=== PATIENT | female | born 1985 | race Caucasian/White ===

== ENCOUNTER 2018-08-18 20:48 | Inpatient (IN) ==
[2018-08-18] MEDS ORDERED: SODIUM CHLORIDE 0.9% 1,000 ML IV STA (21:33)
[2018-08-18] MEDS ORDERED: MORPHINE 4 MG/1 ML VIAL IV STA (21:33)
[2018-08-18] MEDS ORDERED: ONDANSETRON 4 MG/2 ML VIAL IV STA (21:33)
[2018-08-18 21:46] LABS: Basophils % 0.2 % (0.0-0.8); Eosinophils # 0.1 10*3/uL (0.0-0.87); Hematocrit 36.7 VOL% (35.7-47.0); Hemoglobin 11.3 GM/DL (12.0-16.0); Immature Granulocytes % 0.3 %; Immature Granulocytes Absolute 0.04 #; Lymphocytes # 2.3 10*3/uL (1.4-4.0); Lymphocytes % 18.6 % (21.3-54.2); Mean Corpuscular HGB Conc 30.8 GM/DL (32-36); Mean Corpuscular Hemoglobin 24 PG (27-34); Mean Corpuscular Volume 78.8 FL (87-102); Mean Platelet Volume 9.9 FL (9.6-12.0); Monocytes % 8.3 % (1.7-12.7); Neutrophils # 8.9 10*3/uL (1.4-7.4); Neutrophils % 71.6 % (38.7-73.9); Platelet Count 376 T/CUMM (130-400); Red Blood Count 4.66 MC/CUMM (3.8-5.5); Red Cell Distribution Width 17.8 % (9.3-17.3); White Blood Count 12.4 T/CUMM (4-12)
[2018-08-18 22:10] LABS: Alanine Aminotransferase 21 U/L (13-56); Albumin 3.8 G/DL (3.4-5.0); Alkaline Phosphatase 91 U/L (45-117); Aspartate Amino Transferase 18 U/L (0-37); Bilirubin,Total < 0.39 MG/DL (0.2-1.0); Blood Urea Nitrogen 8 MG/DL (7-18); Glucose 110 MG/DL (74-106); Osmolality,Calculated 275.5 MOS/KG (273-304); Potassium 3.4 MMOL/L (3.5-5.1); Sodium 139 MMOL/L (136-145); Total Protein 8.1 G/DL (6.4-8.3)
[2018-08-18 22:43] LABS: Apearance,Urine Slightly Hazy (Clear); Bilirubin,Urine Negative (Negative); Blood, Urine Negative (Negative); Glucose,Urine (UA) Negative (Negative); Ketones,Urine Negative (Negative); Mucus,Urine Many /LPF (Occasional); Nitrite,Urine Negative (Negative); Protein,Urine Negative; RBC,Urine 1 /HPF (0-4); Squamous Epithelial Cell,Urine Occasional /HPF (0-10); Urine Color Yellow (Yellow); Urine Specific Gravity 1.024 (1.001-1.035); Urine Urobilinogen < 2.0 EU/DL (0.2-1.0); WBC,Urine 2 /HPF (0-6)
[2018-08-19] MEDS ORDERED: SODIUM CHLORIDE 0.9% 1,000 ML IV STA (00:11)
[2018-08-19] MEDS ORDERED: ONDANSETRON 4 MG/2 ML VIAL IV STA ×2 (00:23→00:24)
[2018-08-19] MEDS: DEXTROSE 5% NACL 0.45% 1,000 ML IV SCH ×3 (02:31→17:22)
[2018-08-19] MEDS: MORPHINE 4 MG/1 ML VIAL IV STA ×3 (02:44→03:03)
[2018-08-19] MEDS: PROMETHAZINE 25 MG/1 ML VIAL IM PRN ×2 (03:02→21:13)
[2018-08-19] MEDS: ONDANSETRON 4 MG/2 ML VIAL IV PRN ×3 (06:49→18:46)
[2018-08-19] MEDS: PANTOPRAZOLE 40 MG TABLET PO SCH (08:03)
[2018-08-19] MEDS ORDERED: ACETAMINOPHEN 325 MG TABLET PO PRN (14:26)
[2018-08-20] MEDS: DEXTROSE 5% NACL 0.45% 1,000 ML IV SCH ×2 (03:13→10:36)
[2018-08-20 05:01] LABS: Basophils % 0.4 % (0.0-0.8); Eosinophils # 0.2 10*3/uL (0.0-0.87); Hemoglobin 9.4 GM/DL (12.0-16.0); Immature Granulocytes % 0.3 %; Immature Granulocytes Absolute 0.02 #; Lymphocytes # 2.4 10*3/uL (1.4-4.0); Lymphocytes % 30.4 % (21.3-54.2); Mean Corpuscular HGB Conc 30.3 GM/DL (32-36); Mean Corpuscular Hemoglobin 24 PG (27-34); Mean Corpuscular Volume 80.3 FL (87-102); Mean Platelet Volume 10.3 FL (9.6-12.0); Monocytes # 0.6 10*3/uL (0.11-0.8); Monocytes % 8.1 % (1.7-12.7); Neutrophils # 4.7 10*3/uL (1.4-7.4); Neutrophils % 58.8 % (38.7-73.9); Platelet Count 300 T/CUMM (130-400); Red Blood Count 3.86 MC/CUMM (3.8-5.5); Red Cell Distribution Width 18.1 % (9.3-17.3); White Blood Count 7.9 T/CUMM (4-12)
[2018-08-20 05:35] LABS: Calcium 8.1 MG/DL (8.5-10.1); Osmolality,Calculated 276.3 MOS/KG (273-304); Potassium 3.4 MMOL/L (3.5-5.1)
[2018-08-20] MEDS: PANTOPRAZOLE 40 MG TABLET PO SCH (09:56)
[2018-08-20] MEDS: MORPHINE 4 MG/1 ML VIAL IV STA (09:57)
[2018-08-20 11:39] VITALS: BP 98/59
== END 2018-08-20 11:38 | disposition home or self-care (01) | DRG 390 ==
LOC: N.ED 20:48 → N.EDINP 08-19 00:11 → N.3E 08-19 00:45
PROVIDERS: ADMIT Surgery; ATTEND Surgery